=== PATIENT | female | born 1990 | race Two or more races ===

== ENCOUNTER 2016-12-02 15:20 | Observation (INO) | payer OTHER ==
[~2016-12-02 15:20] MED LIST: HYDROCORTISONE TP; IBUPROFEN800 MG PO; IRON325 MG PO; MOTRIN200 MG/TA1 PO; NORCO 5/3251 TAB PO; PRENATAL1 EACH PO; TYLENOL650 MG PO
[2016-12-02 16:30] LABS: URINE BILIRUBIN NEGATIVE (NEG); URINE BLOOD NEGATIVE (NEG); URINE GLUCOSE (UA) NEGATIVE (NEG); URINE KETONE NEGATIVE (NEG); URINE LEUKOCYTE ESTERASE NEGATIVE (NEG); URINE NITRITE NEGATIVE (NEG); URINE PROTEIN NEGATIVE (NEG)
[2016-12-02 16:32] LABS: URINE APPEARANCE CLEAR; URINE COLOR PALE YELLOW
[2016-12-31] MEDS ORDERED: IBUPROFEN800 M1 PO (00:33)
== END 2016-12-02 17:30 ==
LOC: LDR 15:20
PROVIDERS: ADMIT Obstetrics & Gynecology
DX: O99.89 Other specified diseases and conditions complicating pregnancy, childbirth and the puerperium (principal); R10.9 Unspecified abdominal pain; Z3A.35 35 weeks gestation of pregnancy